=== PATIENT | female | born 1995 | race Caucasian/White ===

== ENCOUNTER 2021-04-08 08:30 | Outpatient (RCR) | payer OTHER, SELFPAY ==
[2021-03-27 12:33] VITALS: BMI 25.2
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
--- NOTE | 2021-03-27 12:55 | PC.ADMIT ---
Patient is a 25 year old female who was referred by [facility] d/t increased depression with SI to buy a rope from [employer] and hang herself. Patient was intoxicated upon admission BAL 325. Patient reports sobriety from ETOH since November 15, 2020 however relapsed 2 weeks prior to hospitalization. Patient is alert and oriented x4. Calm and cooperative. Presents with depressed mood and affect. Denied SI. Gave verbal permission to email her a copy of her safety plan. If feeling unsafe patient stated she could contact her partner whom she lives with, her therapist, crisis, or friends. Patient stated she has been working on finding a psychiatrist. her PCP is currently prescribing. Patient is limited on where she can go and has a private therapist. Patient stated she can not go to [facility], [facility], [facility] or [facility] as she has either worked for them or they do not accept her insurance. Patient reports she is taking her medicaions as prescribed. Medications reconciled with [facility] inpatient unit d/c list and patient. Medication Education provided.
--- NOTE | 2021-03-27 15:02 | PC.NURSE ---
case opened in treatment team
--- NOTE | 2021-03-28 13:16 | PC.NURSE ---
I spoke with client to review her tx plan and assess if she may have been drinking. She does not appear intoxicated and states that she feels anxious. We discussed how to get her needs met here without having to be in the therapist role. She states that she will sometimes need help in group to talk if she is too anxious and if she is acting as the therapist we will discuss that outside of group. She states that her boyfriend will be home this afternoon and that she is safe.
--- NOTE | 2021-03-31 14:00 | HO.PHPPROGNO ---
Subjective Subjective Date of Service: 03/31/21 Reason For Visit: MDD, ETOH Interim History: The patient reported no change on her depression, no side effects with the increase Lexapro. She is having financials stressors. No relapse on alcohol. Medication Compliance: Yes Side effects from medications: No Attending Groups: Yes Mental Status Exam Mental Status Exam Patient Appearance: Well Grooomed Patient Orientation: Person, Place, Time and Situation Level of Consciousness: Awake Patient Behavior: Appropriate and Cooperative Mood Description: Calm Affect Description: Appropriate Patient Cognition Impaired: No Ability to Follow Directions: Good Speech Pattern: Clear Memory Description: Intact Hallucinations: None Delusions: Not Present Thought Process: Goal Oriented Thought Content: positive for Intact Judgement: Fair Diagnostics Vital Signs (24Hr): Body Mass Index 25.2 Assessment & Plan Assessment & Plan (1) Alcohol dependence in early full remission: Status: Acute Code(s): F10.21 - Alcohol dependence, in remission (2) Major depressive disorder, recurrent episode: Status: Acute Code(s): F33.9 - Major depressive disorder, recurrent, unspecified Assessment and Plan: The patient is an adult female with MDD and alcohol use disorder with a strong family history of alcoholism, referred for continuation of care after inpatient admission and IOP. Currently, she is still with some residual dysphoria but no alcohol relapse. We increase Lexapro up to 20 mg last week. Plan: Keep [facility] treatment Certification I certify that partial hospital treatment is medically necessary due to the symptoms and problems resulting from the patient's mental illness and the failure to treat the patient at the partial hospital level of care would likely result in the patient requiring inpatient psychiatric care which could not be prevented at a less intensive level of care. Greater than 50% of the session was spent on counseling and/or coordination of care Discharge Plan Discharge Attending provider: Tobias Ocasio Primary Care Provider: Maine Estrella Medications: New escitalopram oxalate [Lexapro] 20 mg tablet 20 mg PO DAILY 7 Days Qty: 7 RF: 0 No Action multivitamin Tablet 1 tab PO DAILY RF: 0 clonidine HCl 0.1 mg Tablet 0.1 mg PO BID RF: 0 trazodone 50 mg Tablet 50 - 75 mg PO BEDTIME PRN (Reason: Insomnia) RF: 0 naltrexone 50 mg Tablet 50 mg PO DAILY RF: 0 buspirone [BuSpar] 10 mg Tablet 10 mg PO DAILY RF: 0 escitalopram oxalate [Lexapro] 10 mg Tablet 10 mg PO DAILY RF: 0 Referrals: Maine Estrella, MSN [Primary Care Provider] - 1 Week Telehealth Telehealth Location of provider rendering services: practice address Location of patient: address on file Patient Identification confirmed using: Name, : Yes Telehealth method: video Patient verbally consented to treatment: Yes Patient verbally consented to billing insurance company: Yes Patient informed of any privacy concerns related to visit: No Time spent with patient (mins): 15
--- NOTE | 2021-04-02 10:00 | PC.NURSE ---
Lori reported pt was not in group. Called pt. Left message. Pt called back within a few moments to report she was in group.
--- NOTE | 2021-04-02 12:56 | PC.NURSE ---
Clinician reported pt was not in group again. Called pt that reported she was sad. When asked if she was suicidal, she reported I want to but I can't . She would not elaborate but did report she was safe with her cat just sad . Pt reported she becomes triggered when talking about stuff and goes into clinician mode . Attempted to discuss is PHP was too triggering for. Pt reported she would return to group. Assigned clinician to call pt after group.
--- NOTE | 2021-04-02 13:28 | HO.PHPPROGNO ---
Subjective Subjective Date of Service: 04/02/21 Reason For Visit: MDD, ETOH Interim History: The patient was crying during the interview, she felt very sad due to her family situation, her brother is in and out of skilled nursing, unable to set bounderies with her mother. Medication Compliance: Yes Side effects from medications: No Attending Groups: Yes Review of Systems Acute medical concerns: No Medical Review of Systems: unchanged Mental Status Exam Mental Status Exam Patient Appearance: Well Grooomed Patient Orientation: Person, Place, Time and Situation Level of Consciousness: Awake and Appropriate Patient Behavior: Appropriate Mood Description: Withdrawn and Constricted Affect Description: Depressed Patient Cognition Impaired: No Ability to Follow Directions: Good Speech Pattern: Clear Memory Description: Intact Hallucinations: None Delusions: Not Present Thought Process: Goal Oriented Thought Content: positive for Intact Depressive Symptoms: Crying Spells Judgement: Fair Diagnostics Vital Signs (24Hr): Body Mass Index 25.2 Assessment & Plan Assessment & Plan (1) Major depressive disorder, recurrent episode: Status: Acute Code(s): F33.9 - Major depressive disorder, recurrent, unspecified Assessment and Plan: the patient is a [address] [facility] female with MDD and alcohol use disorder, clean and sober with more depressive symptoms. Plan: Keep Lexapro 20 mg Increase Buspar 10 mg po tid F/U in 4 days (2) Alcohol dependence in early full remission: Status: Acute Code(s): F10.21 - Alcohol dependence, in remission Certification I certify that partial hospital treatment is medically necessary due to the symptoms and problems resulting from the patient's mental illness and the failure to treat the patient at the partial hospital level of care would likely result in the patient requiring inpatient psychiatric care which could not be prevented at a less intensive level of care. Greater than 50% of the session was spent on counseling and/or coordination of care Discharge Plan Discharge Attending provider: Tobias Ocasio Primary Care Provider: Maine Estrella Medications: New escitalopram oxalate [Lexapro] 20 mg tablet 20 mg PO DAILY 7 Days Qty: 7 RF: 0 buspirone 10 mg tablet 10 mg PO TID 7 Days Qty: 21 RF: 0 Discontinued buspirone [BuSpar] 10 mg Tablet 10 mg PO DAILY RF: 0 No Action multivitamin Tablet 1 tab PO DAILY RF: 0 clonidine HCl 0.1 mg Tablet 0.1 mg PO BID RF: 0 trazodone 50 mg Tablet 50 - 75 mg PO BEDTIME PRN (Reason: Insomnia) RF: 0 naltrexone 50 mg Tablet 50 mg PO DAILY RF: 0 escitalopram oxalate [Lexapro] 10 mg Tablet 10 mg PO DAILY RF: 0 Referrals: Maine Estrella, MSN [Primary Care Provider] - 1 Week Telehealth Telehealth Location of provider rendering services: practice address Location of patient: address on file Patient Identification confirmed using: Name, : Yes Telehealth method: video Patient verbally consented to treatment: Yes Patient verbally consented to billing insurance company: Yes Patient informed of any privacy concerns related to visit: No Time spent with patient (mins): 15
--- NOTE | 2021-04-02 14:46 | PC.NURSE ---
I spoke with the client after group. She states that when we discussed focusing on her needs in group she felt as if I were saying that she was bead. We were able to process this and by the end of our conversation her affect was less distraught and stable. She contracts for safety and states that she will be in tomorrow.
--- NOTE | 2021-04-04 10:08 | PC.NURSE ---
Spoke with pt this morning as clinician reported that pt was turning her camera off on purpose during groups. Pt presented as sullen and slow to respond. Recommended pt call crisis. She agreed to call SUPERVISOR/PORT DIRECTOR crisis. Left message for emergency contact.
--- NOTE | 2021-04-04 10:19 | PC.NURSE ---
Placed pt on alert with [employer] SUPERVISOR crisis
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
--- NOTE | 2021-04-04 12:46 | PC.NURSE ---
Checked in with patient at 1235. Patient stated she was feeling a little better however feeling stressed. Stated she is safe. Plans on playing games online with her partner over the weekend. Stated she will be back to the program on Wednesday. She is meeting with Dr Ocasio today at 1430 to f/u on medication changes.
--- NOTE | 2021-04-04 14:31 | HO.PHPPROGNO ---
Subjective Subjective Date of Service: 04/04/21 Reason For Visit: MDD, ETOH Interim History: The patient reported that she is dysphoric but safe. No side effects with the increase of Buspar. Medication Compliance: Yes Side effects from medications: No Attending Groups: Yes Review of Systems Acute medical concerns: No Medical Review of Systems: unchanged Mental Status Exam Mental Status Exam Patient Appearance: Well Grooomed Patient Orientation: Person, Place, Time and Situation Level of Consciousness: Awake and Appropriate Patient Behavior: Appropriate Mood Description: Appropriate and Depressed Affect Description: Withdrawn, Appropriate and Constricted Patient Cognition Impaired: No Ability to Follow Directions: Good Speech Pattern: Clear Memory Description: Intact Hallucinations: None Delusions: Not Present Thought Content: positive for Intact Judgement: Fair Diagnostics Vital Signs (24Hr): Body Mass Index 25.2 Assessment & Plan Assessment & Plan (1) Major depressive disorder, recurrent episode: Status: Acute Code(s): F33.9 - Major depressive disorder, recurrent, unspecified Assessment and Plan: Adult female with MDD and past alcohol use disorder Plan Continue same treatment Certification I certify that partial hospital treatment is medically necessary due to the symptoms and problems resulting from the patient's mental illness and the failure to treat the patient at the partial hospital level of care would likely result in the patient requiring inpatient psychiatric care which could not be prevented at a less intensive level of care. Greater than 50% of the session was spent on counseling and/or coordination of care Discharge Plan Discharge Attending provider: Tobias Ocasio Primary Care Provider: Maine Estrella Medications: New escitalopram oxalate [Lexapro] 20 mg tablet 20 mg PO DAILY 7 Days Qty: 7 RF: 0 buspirone 10 mg tablet 10 mg PO TID 7 Days Qty: 21 RF: 0 Discontinued buspirone [BuSpar] 10 mg Tablet 10 mg PO DAILY RF: 0 No Action multivitamin Tablet 1 tab PO DAILY RF: 0 clonidine HCl 0.1 mg Tablet 0.1 mg PO BID RF: 0 trazodone 50 mg Tablet 50 - 75 mg PO BEDTIME PRN (Reason: Insomnia) RF: 0 naltrexone 50 mg Tablet 50 mg PO DAILY RF: 0 escitalopram oxalate [Lexapro] 10 mg Tablet 10 mg PO DAILY RF: 0 Referrals: Maine Estrella, MSN [Primary Care Provider] - 1 Week Telehealth Telehealth Location of provider rendering services: practice address Location of patient: address on file Patient Identification confirmed using: Name, : Yes Telehealth method: video Patient verbally consented to treatment: Yes Patient verbally consented to billing insurance company: Yes Patient informed of any privacy concerns related to visit: No Time spent with patient (mins): 15
--- NOTE | 2021-04-07 08:21 | PC.NURSE ---
I left a message with Patrica Cohen APRN RE referral for med management
--- NOTE | 2021-04-07 15:22 | PC.NURSE ---
I spoke with the client this morning and she agreed to a referral for DBT at [facility]. I called [facility] and gave the information to Cori in registration and left a message for Miguelito Colindres.
--- NOTE | 2021-04-07 15:32 | PC.NURSE ---
called client to inform her that I made a referral to [facility] and they will send her paperwork to fill out.
--- NOTE | 2021-04-08 10:44 | PC.NURSE ---
Patient is discharging from the program today. Reviewed patient medication list with patient, medication education provided. Patient reports taking medications as prescribed. Patient will be set up with a new prescriber appointment today by Soumya Painter
--- NOTE | 2021-04-08 13:46 | HO.PHPPROGNO ---
Subjective Subjective Date of Service: 04/08/21 Reason For Visit: MDD, ETOH Interim History: The patient reported that her mood is better, no relapse on alcohol Medication Compliance: Yes Side effects from medications: No Attending Groups: No Mental Status Exam Mental Status Exam Patient Appearance: Well Grooomed Patient Orientation: Person, Place, Time and Situation Level of Consciousness: Awake and Appropriate Patient Behavior: Appropriate Mood Description: Calm Affect Description: Appropriate Patient Cognition Impaired: No Ability to Follow Directions: Good Speech Pattern: Clear Memory Description: Intact Hallucinations: None Delusions: Not Present Thought Process: Goal Oriented Thought Content: positive for Intact Judgement: Fair Diagnostics Vital Signs (24Hr): Body Mass Index 25.2 Assessment & Plan Assessment & Plan (1) Major depressive disorder, recurrent episode: Status: Acute Code(s): F33.9 - Major depressive disorder, recurrent, unspecified Assessment and Plan: the patient is an adult female with MDD and alcohol use disorder on early sobriety, stable Plan Keep same treatment (2) Alcohol dependence in early full remission: Status: Acute Code(s): F10.21 - Alcohol dependence, in remission Certification I certify that partial hospital treatment is medically necessary due to the symptoms and problems resulting from the patient's mental illness and the failure to treat the patient at the partial hospital level of care would likely result in the patient requiring inpatient psychiatric care which could not be prevented at a less intensive level of care. Greater than 50% of the session was spent on counseling and/or coordination of care Discharge Plan Discharge Attending provider: Tobias Ocasio Primary Care Provider: Maine Estrella Medications: New escitalopram oxalate [Lexapro] 20 mg tablet 20 mg PO DAILY 7 Days Qty: 7 RF: 0 Continued buspirone 10 mg tablet 10 mg PO TID 14 Days Qty: 21 RF: 0 Discontinued buspirone [BuSpar] 10 mg Tablet 10 mg PO DAILY RF: 0 No Action multivitamin Tablet 1 tab PO DAILY RF: 0 clonidine HCl 0.1 mg Tablet 0.1 mg PO BID RF: 0 trazodone 50 mg Tablet 50 - 75 mg PO BEDTIME PRN (Reason: Insomnia) RF: 0 naltrexone 50 mg Tablet 50 mg PO DAILY RF: 0 escitalopram oxalate [Lexapro] 10 mg Tablet 10 mg PO DAILY RF: 0 Referrals: Maine Estrella, MSN [Primary Care Provider] - 1 Week Stand Alone Forms: Patient Portal Discharge page Telehealth Telehealth Location of provider rendering services: practice address Location of patient: address on file Patient Identification confirmed using: Name, : Yes Telehealth method: video Patient verbally consented to treatment: Yes Patient verbally consented to billing insurance company: Yes Patient informed of any privacy concerns related to visit: No Time spent with patient (mins): 15
--- NOTE | 2021-04-08 14:53 | PC.NURSE ---
Left message with clients therapist Brenda Rivera re client dc
== END 2021-04-09 08:19 | disposition home or self-care (01) ==
LOC: HO.PHPA 08:30
PROVIDERS: PCP Family Medicine; Visit Provider Psychiatry & Neurology Psychiatry
DX: F33.9 Major depressive disorder, recurrent, unspecified (principal); F10.21 Alcohol dependence, in remission; Z79.899 Other long term (current) drug therapy
CPT/HCPCS: 90791; 90853